=== PATIENT | male | born 1990 | race Two or more races ===

== ENCOUNTER → 2017-07-04 | Outpatient (CLI) | payer OTHER ==
--- NOTE | 2017-07-04 10:22 | REP ---
CT abdomen pelvis without IV or bowel contrast: There are no comparisons. The visualized lung taveras are unremarkable. The unenhanced hepatic parenchyma, gallbladder, pancreas and spleen are unremarkable. The adrenals and kidneys are unremarkable. There is no right hydronephrosis. No renal calculi. Abdominal aorta is unremarkable. The bowel and mesentery are unremarkable. Pelvis: The appendix is normal in appearance. The bladder is unremarkable. Pelvic bowel loops are unremarkable. There is no ascites or adenopathy. Impression: Negative CT study of the abdomen and pelvis without IV or bowel contrast. There is no hydronephrosis. No renal calculi. No bladder calculi. No ureteral calculi. No bowel distension or obstruction. No ascites, adenopathy or mass. Signed by Jackson Moseley MD 07/04/2017 10:13 A
== END ==
LOC: M RAD 09:29
PROVIDERS: ATTEND Nurse Practitioner Women's Health
DX: N50.819 Testicular pain, unspecified (principal); R35.0 Frequency of micturition
CPT/HCPCS: 74176; 81001; 87086; G0463

== ENCOUNTER → 2017-10-25 | Outpatient (CLI) | payer OTHER ==
[~2017-10-25] MED LIST: PROHANCE 279.3MG/ML 15ML VIAL (A9576) As Ordered
== END ==
LOC: M RAD 10:41
DX: R35.0 Frequency of micturition (principal); R32 Unspecified urinary incontinence
CPT/HCPCS: A9576

== ENCOUNTER → 2017-12-05 | Outpatient (CLI) | payer OTHER | LOC: M RADPRO 06:27 | DX: R10.30 Lower abdominal pain, unspecified (principal); N42.81 Prostatodynia syndrome; I34.0 Nonrheumatic mitral (valve) insufficiency; M24.852 Other specific joint derangements of left hip, not elsewhere classified; Z79.899 Other long term (current) drug therapy | CPT/HCPCS: 27093 ==

== ENCOUNTER → 2018-01-02 | Outpatient (CLI) | payer OTHER ==
[~2018-01-02] MED LIST changes: +CONRAY-43 43% 50ML VIAL (Q9960) As Ordered; +LIDOCAINE 1% MDV 20ML VIAL As Ordered; -PROHANCE 279.3MG/ML 15ML VIAL (A9576) As Ordered; +TRIAMCINOLONE ACETONIDE SUSP 40 MG/ML VIAL (J3301) As Ordered
== END ==
LOC: M RADPRO 09:37
DX: M25.552 Pain in left hip (principal)
CPT/HCPCS: 20610